=== PATIENT | female | born 1975 | race Two or more races ===

== ENCOUNTER 2023-09-04 06:45 | Emergency (ER) | payer MEDICAID ==
[~2023-09-04] VITALS: Ht 170.2 cm; Wt 63.5 kg
[2023-09-04 07:05] VITALS: BP 133/91; PULSE 68; RESP 17; TEMP 98.2; O2SAT 100
== END 2023-09-04 08:46 | disposition left against medical advice (07) ==
LOC: MED 06:45
DX: R20.0 Anesthesia of skin (principal); R03.0 Elevated blood-pressure reading, without diagnosis of hypertension; R51.9 Headache, unspecified; Z53.21 Procedure and treatment not carried out due to patient leaving prior to being seen by health care provider
CPT/HCPCS: 99281

== ENCOUNTER 2024-05-02 16:45 | Emergency (ER) | payer MEDICAID ==
[~2024-05-02] VITALS: Ht 165.1 cm; Wt 62.1 kg
[2024-05-02 16:52] VITALS: BP 124/85; PULSE 87; RESP 18; TEMP 98.6; O2SAT 97
[2024-05-02 17:25] LABS: APPEARANCE,URINE CLEAR (CLEAR); BILIRUBIN,URINE NEGATIVE (NEGATIVE); BLOOD, URINE NEGATIVE (NEGATIVE); COLOR,URINE YELLOW (YELLOW); LEUKOCYTE ESTERASE ,URINE NEGATIVE (NEGATIVE); NITRITE, URINE NEGATIVE (NEGATIVE); PROTEIN,URINE NEGATIVE (NEGATIVE); UGLUCOSE NEGATIVE (NEGATIVE); UROBILINOGEN,URINE 0.2 EU/dL (0.2 - 1)
[2024-05-02] MEDS ORDERED: ACET-8905 PO (18:03)
[2024-05-02] MEDS: KETOROLAC 60 MG/2 ML VIAL IM ONE (18:05)
[2024-05-02 18:25] VITALS: BP 128/55; PULSE 56; RESP 16; TEMP 98.2; O2SAT 98
== END 2024-05-02 18:25 | disposition home or self-care (01) ==
LOC: MED 16:45
DX: R10.12 Left upper quadrant pain (principal); R03.0 Elevated blood-pressure reading, without diagnosis of hypertension; Z86.39 Personal history of other endocrine, nutritional and metabolic disease
CPT/HCPCS: 81003; 96372; 99283; J1885